=== PATIENT | female | born 1995 | race Native Hawaiian/Other Pacific Islander ===

== ENCOUNTER 2021-01-21 08:24 | Emergency (ER) | payer OTHER ==
[~2021-01-21] VITALS: Ht 162.6 cm; Wt 95.3 kg
[2021-01-21 08:34] VITALS: TEMP 97.4
[2021-01-21 09:01] LABS: PLATELET COUNT 448 K/uL (152-353)
[2021-01-21 09:05] LABS: POTASSIUM 3.7 mmol/L (3.6-5.2)
[2021-01-21 09:56] VITALS: BP 126/88
== END 2021-01-21 09:59 | disposition home or self-care (01) ==
LOC: ED 08:24
PROVIDERS: Emergency Medicine
DX: R07.89 Other chest pain (principal); U07.1 COVID-19; F41.8 Other specified anxiety disorders
CPT/HCPCS: 80048; 85007; 85027; 85379; 99281